=== PATIENT | female | born 1960 | race Caucasian/White ===

== ENCOUNTER → 2017-08-21 | Outpatient (CLI) | payer BC ==
[~2017-08-21] MED LIST: ATOR20TA66 PO; DOXY20TA5 PO; SERT50TA9 PO
--- NOTE | 2017-08-21 13:05 | Diagnostic Imaging Report ---
Bilateral screening mammogram 2D views with tomosynthesis. The current study was also evaluated with a Computer Aided Detection (CAD) system. INDICATION: Screening. No current complaints stated on the questionnaire. COMPARISON: 07/25/16. FINDINGS: The breasts are composed of scattered fibroglandular densities. No mass, architectural distortion or suspicious cluster of calcifications seen. Allowing for technique and positional differences, no suspicious change is seen. IMPRESSION: No significant change. ACR BI-RADS Category 2: Benign findings. Result letter will be mailed to the patient. Note: At least 10% of breast cancer is not imaged by mammography. Dictated on workstation # [id number]
== END ==
LOC: RAD 10:21
PROVIDERS: ATTEND Family Medicine
DX: Z12.31 Encounter for screening mammogram for malignant neoplasm of breast (principal)
CPT/HCPCS: 77067

== ENCOUNTER → 2019-04-01 | Outpatient (CLI) | payer BC ==
--- NOTE | 2019-04-01 17:41 | Diagnostic Imaging Report ---
INDICATION: Routine screening. COMPARISON: Prior mammograms from 08/21/2017 and 07/25/2016. EXAMINATION: 2D and 3D bilateral screening mammography was performed with CAD. The current study was also evaluated with a Computer Aided Detection (CAD) system. FINDINGS: Scattered fibroglandular densities are identified, bilaterally. No mass or malignant appearing microcalcifications are seen. Axillae are unremarkable. IMPRESSION: No mammographic features suspicious for malignancy are identified. ACR BI-RADS Category 1: Negative. Result letter will be mailed to the patient. Note: At least 10% of breast cancer is not imaged by mammography. Dictated by: Dictated on workstation # [id number]
== END ==
LOC: RAD 07:01
PROVIDERS: ATTEND Family Medicine
DX: Z12.31 Encounter for screening mammogram for malignant neoplasm of breast (principal)
CPT/HCPCS: 77067

== ENCOUNTER → 2020-04-13 | Outpatient (CLI) | payer BC ==
--- NOTE | 2020-04-13 14:30 | Diagnostic Imaging Report ---
INDICATION: Screening mammography EXAMINATION: 2-D and 3-D digital screening with CAD. COMPARISONS: 03/2019, 08/2017, 07/2016 and 06/2015 FINDINGS: Scattered fibronodular densities, unchanged. No breast mass, spiculated lesion, architectural distortion or suspicious calcifications. IMPRESSION: 1. Stable negative mammograms. BI-RADS Category 1 ACR BI-RADS Category 1: Negative. Result letter will be mailed to the patient. Note: At least 10% of breast cancer is not imaged by mammography. Dictated by: Dictated on workstation # [id number]
== END ==
LOC: RAD 10:39
PROVIDERS: ATTEND Family Medicine
DX: Z12.31 Encounter for screening mammogram for malignant neoplasm of breast (principal)
CPT/HCPCS: 77063; 77067

== ENCOUNTER → 2021-05-31 | Outpatient (CLI) | payer BC, OTHER ==
[~2021-05-31] MED LIST changes: +SERT-413 PO; -SERT50TA9 PO
--- NOTE | 2021-05-31 10:29 | Diagnostic Imaging Report ---
INDICATION: Digital screening with CAD. COMPARED: 04/2020, 03/2019 and 08/2013. FINDINGS: Scattered fibroglandular elements in the breast are present with no mass, spiculated density, suspicious calcifications or architectural distortion. IMPRESSION: Stable negative mammogram BI-RADS Category 1 ACR BI-RADS Category 1: Negative. Result letter will be mailed to the patient. Note: At least 10% of breast cancer is not imaged by mammography. Dictated by: Dictated on workstation # [id number]
== END ==
LOC: RAD 08:18
PROVIDERS: ATTEND Family Medicine
DX: Z12.31 Encounter for screening mammogram for malignant neoplasm of breast (principal)
CPT/HCPCS: 77063; 77067

== ENCOUNTER → 2022-06-06 | Outpatient (CLI) | payer OTHER ==
--- NOTE | 2022-06-06 15:32 | Diagnostic Imaging Report ---
Digital mammogram, bilateral screening with CAD. This study was compared to the prior exams of 05/31/2021, 04/13/2020 and 04/01/2019. At this time there are no current complaints. The current study was also evaluated with a Computer Aided Detection (CAD) system. FINDINGS: There are scattered fibroglandular densities in both breasts which could obscure a lesion. Overall, there does not appear to have been any significant change when compared to the prior exam. No primary or secondary sign of malignancy is noted. IMPRESSION: There is no radiographic evidence for malignancy ACR BI-RADS Category 1: Negative. Result letter will be mailed to the patient. Note: At least 10% of breast cancer is not imaged by mammography. Dictated by: Dictated on workstation # [id number]
== END ==
LOC: RAD 09:26
PROVIDERS: ATTEND Family Medicine
DX: Z12.31 Encounter for screening mammogram for malignant neoplasm of breast (principal)
CPT/HCPCS: 77063; 77067

== ENCOUNTER → 2023-07-10 | Outpatient (CLI) | payer BC ==
--- NOTE | 2023-07-10 16:47 | Diagnostic Imaging Report ---
Indication: Routine screening. Comparison is made with prior mammograms 06/06/2022 and 05/31/2021. Preop 2-D and 3-D bilateral screening mammography was performed with CAD. Scattered fibroglandular densities are identified bilaterally. The parenchymal pattern is stable. No mass or malignant-appearing microcalcifications are seen. Axillae are unremarkable. IMPRESSION: BI-RADS Category 1 No mammographic features suspicious for malignancy are identified. ACR BI-RADS Category 1: Negative. Result letter will be mailed to the patient. Note: At least 10% of breast cancer is not imaged by mammography. Dictated by: Dictated on workstation # [id number]
== END ==
LOC: RAD 09:34
PROVIDERS: ATTEND Family Medicine
DX: Z12.31 Encounter for screening mammogram for malignant neoplasm of breast (principal)
CPT/HCPCS: 77063; 77067

== ENCOUNTER → 2023-07-24 | Outpatient (CLI) | payer BC, SELFPAY ==
--- NOTE | 2023-07-24 12:30 | Diagnostic Imaging Report ---
INDICATION: Family history of cardiac disease and hypercholesterolemia EXAM: The patient presents for noncontrasted limited CT chest for the purpose of assessing and quantifying coronary artery calcifications. There are no detectable coronary artery atherosclerotic vascular calcifications. The thoracic aorta included in the [id number] normal in caliber. There is no pericardial effusion. No hilar or mediastinal adenopathy apparent. The visible pulmonary parenchyma and pleura showed no acute pathology. The visible chest wall unremarkable. No appreciable lung mass. The visible upper abdomen shows a left lobe liver cyst. IMPRESSION: 1. No detectable coronary artery calcifications. 2. Hepatic cysts noted. 3. No visible acute or suspicious chest pathology. Dictated by: Dictated on workstation # [id number]
== END ==
LOC: RAD 09:18
PROVIDERS: ATTEND Nurse Practitioner Family
DX: Z01.89 Encounter for other specified special examinations (principal); Z13.6 Encounter for screening for cardiovascular disorders; Z76.0 Encounter for issue of repeat prescription; I10 Essential (primary) hypertension; K76.89 Other specified diseases of liver; E78.01 Familial hypercholesterolemia; F41.1 Generalized anxiety disorder; E78.49 Other hyperlipidemia; E03.8 Other specified hypothyroidism
CPT/HCPCS: 75571